=== PATIENT | male | born 1990 | race Caucasian/White ===

== ENCOUNTER 2017-06-02 14:27 | Emergency (ER) | payer SELFPAY ==
[~2017-06-02] VITALS: Ht 180.3 cm; Wt 80.9 kg
[~2017-06-02 14:27] MED LIST: CIPRO 500MG TA500 MG PO; DOXYCYCLINE 10100 MG PO; NORCO 325 MG-7.1 TAB PO
[2017-06-02 14:29] VITALS: BP 148/88; TEMP 97.7
[2017-06-02 15:39] VITALS: PULSE 89
== END 2017-06-02 15:40 | disposition home or self-care (01) ==
LOC: COL.ER 14:27
DX: S93.401A Sprain of unspecified ligament of right ankle, initial encounter (principal); F17.210 Nicotine dependence, cigarettes, uncomplicated; X50.0XXA Overexertion from strenuous movement or load, initial encounter; Y92.009 Unspecified place in unspecified non-institutional (private) residence as the place of occurrence of the external cause

== ENCOUNTER 2018-04-29 12:20 | Emergency (ER) | payer SELFPAY ==
[~2018-04-29] VITALS: Ht 180.3 cm; Wt 88.6 kg
[2018-04-29 12:32] VITALS: TEMP 99.3
[2018-04-29 13:02] LABS: BASO # 0.1 (0.0-0.2); BASO % 0.7 % (0.0-2.0); EOS # 0.2 (0.0-0.7); EOS % 3.3 % (0-4.0); GRAN # 3.8 (1.4-6.5); GRAN % 57.1 % (42.2-75.2); HEMATOCRIT 44.9 % (42.0-52.0); HEMOGLOBIN 15.6 g/dl (13.5-18.0); LYMPH # 2.2 (1.2-3.4); LYMPH % 32.9 % (20.0-51.0); MEAN CELL VOLUME 90 fl (80.0-100.0); MEAN CORPUSCULAR HEMOGLOBIN 31 pg (27.0-31.0); MEAN CORPUSCULAR HGB CONC 35 g/dl (33.0-37.0); MEAN PLATELET VOLUME 9.6 fl (7.4-10.4); MONO # 0.4 (0.1-0.6); MONO % 5.7 % (1.7-9.3); PLATELET COUNT 184 K/mm3 (130-400); RED BLOOD COUNT 5.01 M/mm3 (4.20-5.60); REDCELL DISTRIBUTION WIDTH-CV 11.9 % (11.5-14.5)
[2018-04-29 13:13] LABS: ALANINE AMINOTRANSFERASE 135 U/L (21-72); ALBUMIN 4.4 gm/dL (3.5-5.0); ALKALINE PHOSPHATASE 87 U/L (50-136); ANION GAP 8 mmol/L (7-16); AST,SGOT 52 U/L (15-37); BILIRUBIN,TOTAL 0.4 mg/dL (0.0-1.0); BLOOD UREA NITROGEN 19 mg/dL (9-20); CALCIUM 9.8 mg/dL (8.4-10.2); CARBON DIOXIDE 27 mmol/L (22-30); CHLORIDE 105 mmol/L (98-107); CREATININE, serum 0.84 mg/dL (0.66-1.25); GLUCOSE 96 mg/dL (74-106); LIPASE 56 U/L (23-300); SODIUM 140 mmol/L (137-145); TOTAL PROTEIN 7.9 gm/dL (6.4-8.2)
[2018-04-29 13:16] LABS: C-REACTIVE PROTEIN < 0.5 mg/dL (0.0-0.9)
[2018-04-29 13:34] VITALS: BP 122/66; PULSE 80
== END 2018-04-29 13:35 | disposition home or self-care (01) ==
LOC: COL.ER 12:20
PROVIDERS: Nurse Practitioner
DX: R10.30 Lower abdominal pain, unspecified (principal); F17.210 Nicotine dependence, cigarettes, uncomplicated

== ENCOUNTER 2020-08-18 21:11 | Emergency (ER) | payer SELFPAY ==
[~2020-08-18] VITALS: Ht 180.3 cm; Wt 94.5 kg
[2020-08-18] MEDS ORDERED: BACTRIM DS 8001 TAB PO (22:21)
[2020-08-18 23:00] VITALS: BP 132/71; PULSE 69; TEMP 98.7
== END 2020-08-18 23:00 | disposition home or self-care (01) ==
LOC: COL.ER 21:11
DX: L03.113 Cellulitis of right upper limb (principal); F17.210 Nicotine dependence, cigarettes, uncomplicated
CPT/HCPCS: J1885